=== PATIENT | male | born 1950 ===

== ENCOUNTER 2016-12-11 13:06 | Outpatient (CLI) | payer OTHER ==
[2016-12-11] MEDS ORDERED: ALBUTEROL NEB 2.5 MG/3 ML INH ONE (13:41)
== END 2016-12-11 13:07 | disposition home or self-care (01) ==
DX: R06.00 Dyspnea, unspecified (principal)
CPT/HCPCS: 94060; J7613

== ENCOUNTER 2017-03-19 12:31 | Outpatient (CLI) | payer OTHER | END 2017-03-19 12:32 | disposition home or self-care (01) | DX: I34.0 Nonrheumatic mitral (valve) insufficiency (principal); R06.00 Dyspnea, unspecified; I45.6 Pre-excitation syndrome; I48.92 Unspecified atrial flutter ==

== ENCOUNTER 2018-03-23 10:45 | Outpatient (CLI) | payer MEDICARE ==
[2018-03-23 11:10] LABS: BASOPHILS # (AUTO) 0.1 10^3/uL (0.0-0.1); BASOPHILS % (AUTO) 0.8 %; EOSINOPHILS # (AUTO) 0.2 10^3/uL (0.0-0.7); EOSINOPHILS % (AUTO) 2.8 %; HGB - HEMOGLOBIN 15.1 g/dL (14.0-18.0); LYMPHOCYTES # (AUTO) 1.1 10^3/uL (1.5-3.5); LYMPHOCYTES % (AUTO) 13.6 %; MEAN CORPUSCULAR HEMOGLOBIN 30.6 pg (27.0-31.0); MEAN CORPUSCULAR HGB CONC 34.1 g/dL (32.0-36.0); MEAN CORPUSCULAR VOLUME 89.6 fL (80.0-94.0); MEAN PLATELET VOLUME 8.4 fL (7.4-11.4); MONOCYTES # (AUTO) 0.9 10^3/uL (0.0-1.0); MONOCYTES % (AUTO) 11.9 %; NEUTROPHILS # (AUTO) 5.6 10^3/uL (1.5-6.6); NEUTROPHILS % (AUTO) 70.9 %; PLT - PLATELET COUNT 165 10^3/uL (130-450); RED BLOOD COUNT 4.95 10^6/uL (4.70-6.10); RED CELL DISTRIBUTION WIDTH 14.1 % (12.0-15.0); WHITE BLOOD COUNT 7.9 x10^3/uL (4.8-10.8)
[2018-03-23 11:18] LABS: BILIRUBIN,URINE NEGATIVE (NEGATIVE); GLUCOSE, URINE (UA) NEGATIVE (NEGATIVE); KETONES,URINE (UA) NEGATIVE (NEGATIVE); LEUKOCYTE ESTERASE, URINE NEGATIVE (NEGATIVE); NITRITE,URINE NEGATIVE (NEGATIVE); OCCULT BLOOD,URINE SMALL (NEGATIVE); PROTEIN,URINE NEGATIVE (NEGATIVE); UROBILINOGEN,URINE 0.2 (NORMAL) E.U./dL (NORMAL)
[2018-03-23 11:26] LABS: CLARITY,URINE CLEAR (CLEAR)
[2018-03-23 11:29] LABS: HEMOGLOBIN A1C 0.76 g/dL; HEMOGLOBIN A1C % 6.2 % (4.6-6.2)
[2018-03-23 11:30] LABS: ALBUMIN 4.4 g/dL (3.2-5.5); ALBUMIN/GLOBULIN RATIO 1.4 (1.0-2.2); ALKALINE PHOSPHATASE 54 IU/L (42-121); ALT ALANINE AMINOTRANSFERASE 45 IU/L (10-60); AST ASPARTATE AMINOTRANSFERASE 28 IU/L (10-42); BILIRUBIN,TOTAL 0.4 mg/dL (0.2-1.0); BUN - BLOOD UREA NITROGEN 18 mg/dL (6-20); CALCIUM 9.5 mg/dL (8.5-10.3); CARBON DIOXIDE - CO2 26 mmol/L (21-32); CHLORIDE 104 mmol/L (101-111); CHOL/HDL RATIO 4.6 (<5.0); CHOLESTEROL 201 mg/dL; CREATININE 0.8 mg/dL (0.6-1.2); GFR - MDRD 96 (>89); GLUCOSE 120 mg/dL (70-100); HDL CHOLESTEROL 44 mg/dL; LDL CHOLESTEROL,CALCULATED 120 mg/dL; LDL/HDL RATIO 2.7 (<3.6); SODIUM 138 mmol/L (135-145); TOTAL PROTEIN 7.5 g/dL (6.7-8.2); VLDL CHOLESTEROL 37 mg/dL
[2018-03-23 11:48] LABS: BACTERIA,URINE Rare /HPF (None Seen); CRYSTALS,URINE 0-2 Calcium Oxalate /LPF; RBC,URINE 0-5 /HPF (0-5); SQUAMOUS EPITHELIAL CELL,UR RARE Squamous (<= Few)
[2018-03-23 11:49] LABS: CASTS, URINE 0-2 Hyaline Casts /LPF
== END 2018-03-23 10:46 | disposition home or self-care (01) ==
LOC: LAB 10:45
PROVIDERS: ATTEND Internal Medicine
DX: Z79.899 Other long term (current) drug therapy (principal); I10 Essential (primary) hypertension; R06.00 Dyspnea, unspecified; I48.92 Unspecified atrial flutter; I45.6 Pre-excitation syndrome; E78.5 Hyperlipidemia, unspecified; R73.01 Impaired fasting glucose
CPT/HCPCS: 36415; 80053; 80061; 81001; 81003; 83036; 83721; 84443; 85025; 87086

== ENCOUNTER 2018-03-24 09:46 | Outpatient (CLI) | payer MEDICARE ==
--- NOTE | 2018-03-24 14:28 | XRAY Report ---
TWO VIEW CHEST: 03/24/2018 CLINICAL INDICATION: Dyspnea. FINDINGS: Frontal and lateral views of the chest demonstrate a normal cardiac silhouette. The lungs are hyperinflated, compatible with COPD, with mild fibrotic changes. Calcified granuloma is noted in the left upper lobe. No focal infiltrate, effusion, or pneumothorax is present. IMPRESSION: CHRONIC OBSTRUCTIVE PULMONARY DISEASE AND MILD FIBROSIS. TD: 03/24/2018 14:27
== END 2018-03-24 09:47 | disposition home or self-care (01) ==
LOC: DI 09:46
PROVIDERS: ATTEND Internal Medicine
DX: J44.9 Chronic obstructive pulmonary disease, unspecified (principal); J84.10 Pulmonary fibrosis, unspecified
CPT/HCPCS: 71046

== ENCOUNTER 2019-03-21 10:22 | Emergency (ER) | payer MEDICARE ==
[2019-03-21] MEDS ORDERED: IPRATROPIUM/ALBUTEROL 3 ML NEB INH STA (11:24)
[2019-03-21] MEDS ORDERED: predniSONE 20 MG TABLET PO STA (11:24)
--- NOTE | 2019-03-21 11:32 | ED Physician Documentation ---
History of Present Illness - Stated complaint Stated Complaint: CONGESTION/COUGH - Chief complaint Chief Complaint: Resp - History obtained from History obtained from: Patient, Family - History of Present Illness Timing: How many days ago (5) Pain level max: 3 Pain level now: 3 Improved by: rest Worsened by: exertion - Additonal information Additional information: 68-year-old male presents to the emergency department with cough and congestion for the past several days. Worsening dyspnea at home. Does have a history of asthma/COPD. States his rescue inhaler is not helping. Review of Systems Ears: denies: Ear pain GI: denies: Vomiting Skin: denies: Rash PD PAST MEDICAL HISTORY - Past Medical History Past Medical History: Yes Respiratory: Asthma, COPD - Past Surgical History Past Surgical History: No - Present Medications Home Medications: Ambulatory Orders Medication Instructions Recorded Confirmed Albuterol Sulf [Ventolin Hfa 1 - 2 puffs INH Q4HR PRN #1 inhaler 03/21/19 Inhaler] Doxycycline Hyclate 100 mg PO BID #20 capsule 03/21/19 predniSONE [Deltasone] 10 mg PO [id number] #42 tab 03/21/19 - Allergies Allergies/Adverse Reactions: Allergies Allergy/AdvReac Type Severity Reaction Status Date / Time No Known Drug Allergies Allergy Verified 03/21/19 10:32 - Living Situation Living Situation: reports: With family Living Arrangement: reports: At home - Social History Smoking Status: Former smoker Does the pt drink ETOH?: No Does the pt have substance abuse?: No - Family History Family history: reports: Non contributory PD ED PE NORMAL - Vitals Vital signs reviewed: Yes - General General: Alert and oriented X 3, No acute distress, Well developed/nourished - HEENT HEENT: PERRL, Ears normal, Moist mucous membranes, Pharynx benign - Neck Neck: Supple, no meningeal sign - Cardiac Cardiac: RRR - Respiratory Respiratory: No respiratory distress, Other (Diminished breath sounds and wheezing bilaterally) - Abdomen Abdomen: Soft, Non tender, Non distended - Derm Derm: Warm and dry - Extremities Extremities: No edema - Neuro Neuro: Alert and oriented X 3 - Psych Psych: Normal mood, Normal affect Results - Vitals Vitals: Vital Signs - 24 hr 03/21/19 03/21/19 03/21/19 10:30 11:50 13:10 Temperature 37.1 C Heart Rate 107 H 106 H 118 H Respiratory 22 20 18 Rate Blood Pressure 108/74 O2 Saturation 92 03/21/19 13:52 Temperature Heart Rate 107 H Respiratory 18 Rate Blood Pressure 110/75 O2 Saturation 99 Oxygen O2 Source Room air - Rads (name of study) Chest x-ray Radiology: Prelim report reviewed, EMP read contemporaneously, See rad report (Hyperexpansion as before suggesting COPD. Subtle reticulonodular opacities in the right perihilar region, could represent nodular infiltrate or artifact of endon vascular structures. No focal consolidation or pleural effusion) PD MEDICAL DECISION MAKING - ED course Complexity details: reviewed results, re-evaluated patient, considered differential, d/w patient, d/w family ED course: 68-year-old male presents to the emergency department with COPD flare and possible atypical pneumonia. Will place on doxycycline. Feels better after steroids and breathing treatments. Patient is well-appearing, nontoxic. Afebrile. No hypoxia. Patient counseled regarding signs and symptoms for which I believe and urgent re-evaluation would be necessary. Patient with good understanding of and agreement to plan and is comfortable going home at this time This document was made in part using voice recognition software. While efforts are made to proofread this document, sound alike and grammatical errors may occur. Departure - Departure Disposition: 01 Home, Self Care Clinical Impression: COPD (chronic obstructive pulmonary disease) Qualifiers: COPD type: unspecified COPD Qualified Code(s): J44.9 - Chronic obstructive pulmonary disease, unspecified Condition: Good Instructions: ED COPD Flare Follow-Up: Patti Vann MD [Primary Care Provider] - Within 1 week Prescriptions: Albuterol Sulf [Ventolin Hfa Inhaler] 1 - 2 puffs INH Q4HR PRN #1 inhaler PRN Reason: Shortness Of Air/Wheezing Doxycycline Hyclate 100 mg PO BID #20 capsule predniSONE [Deltasone] 10 mg PO [id number] #42 tab Comments: Use the medications as prescribed. Return if you worsen. Take all antibiotics until gone. Discharge Date/Time: 03/21/19 13:52
[2019-03-21] MEDS ORDERED: ALBUTEROL NEB 2.5 MG/3 ML INH STA (12:23)
--- NOTE | 2019-03-21 12:24 | XRAY Report ---
Reason: cough Procedure Date: 03/21/2019 Accession Number: [id number] / [id number] Procedure: XR - Chest 2 View X-Ray CPT Code: 09637 FULL RESULT: EXAM: CHEST RADIOGRAPHY EXAM DATE: 03/21/2019 12:02 PM. CLINICAL HISTORY: Cough. Shortness of breath, lightheadedness, and severe congestion x5 days. COMPARISON: CHEST 2 VIEW 03/24/2018 9:54 AM. TECHNIQUE: 2 views. FINDINGS: Lungs/Pleura: Hyperexpansion with flattening of the diaphragms, as before. Subtle reticulonodular opacities in the right perihilar region. Stable 8 mm calcified granuloma in the left upper lobe. No pleural effusion or pneumothorax. Mediastinum: Normal cardiomediastinal contour. Atherosclerotic calcifications within the aortic arch. Other: Mild degenerative changes in the mid/lower thoracic spine. IMPRESSION: 1. Hyperexpansion, as before, suggesting COPD. 2. Subtle reticulonodular opacities in the right perihilar region, which could represent nodular infiltrate or artifact of end-on vascular structures. 3. No focal consolidation or pleural effusion. RADIA
[2019-03-21 13:53] VITALS: BP 110/75
== END 2019-03-21 13:52 | disposition home or self-care (01) ==
LOC: ED 10:22
DX: J44.1 Chronic obstructive pulmonary disease with (acute) exacerbation (principal); Z87.891 Personal history of nicotine dependence
CPT/HCPCS: 71046; 94640; 99282; 99284; J7512

== ENCOUNTER 2021-08-19 14:06 | Outpatient (CLI) | payer MEDICARE | END 2021-08-19 14:07 | disposition home or self-care (01) | LOC: COV 14:06 | PROVIDERS: ATTEND Internal Medicine Cardiovascular Disease | DX: Z01.812 Encounter for preprocedural laboratory examination (principal); Z20.822 Contact with and (suspected) exposure to COVID-19 ==

== ENCOUNTER 2022-10-15 15:56 | Emergency (ER) | payer MEDICARE ==
[2022-10-15 17:13] LABS: BASOPHILS % (AUTO) 0.3 %; EOSINOPHILS % (AUTO) 0.2 %; HCT - HEMATOCRIT 42.6 % (42.0-52.0); HGB - HEMOGLOBIN 13.6 g/dL (14.0-18.0); LYMPHOCYTES % (AUTO) 1.8 %; MEAN CORPUSCULAR HEMOGLOBIN 27.5 pg (27.0-31.0); MEAN CORPUSCULAR HGB CONC 31.9 g/dL (32.0-36.0); MEAN CORPUSCULAR VOLUME 86.2 fL (80.0-94.0); MEAN PLATELET VOLUME 10.6 fL (7.4-11.4); MONOCYTES % (AUTO) 4.9 %; NEUTROPHILS % (AUTO) 90.1 %; PLT - PLATELET COUNT 199 10^3/uL (130-450); RED BLOOD COUNT 4.94 10^6/uL (4.70-6.10); RED CELL DISTRIBUTION WIDTH 17.4 % (12.0-15.0); WHITE BLOOD COUNT 27.1 x10^3/uL (4.8-10.8)
[2022-10-15 17:19] LABS: ABNORMAL LYMPHS % (MANUAL) 0 %
[2022-10-15 17:20] LABS: CALCIUM 8.8 mg/dL (8.5-10.3); POTASSIUM 5.5 mmol/L (3.5-5.0)
[2022-10-15] MEDS ORDERED: IPRATROPIUM/ALBUTEROL 3 ML NEB INH STA (17:32)
--- NOTE | 2022-10-15 17:32 | ED Physician Documentation ---
PD HPI DYSPNEA - Stated complaint Stated Complaint: SOA/FATIGUE - Chief complaint Chief Complaint: Resp - History obtained from History obtained from: Patient - Additional information Additional information: 72-year-old gentleman with history of COPD, coronary disease status post stenting had a cough and shortness of breath last week. He was seen in the clinic and diagnosed with pneumonia and started on Zithromax. He became more short of breath with orthopnea today. He denies pedal edema or chest pain. Review of Systems Ten Systems: 10 systems reviewed and negative Constitutional: denies: Fever, Chills Cardiac: denies: Chest pain / pressure, Palpitations Respiratory: reports: Dyspnea, Cough PD PAST MEDICAL HISTORY - Past Medical History Respiratory: Asthma, COPD - Past Surgical History Past Surgical History: No - Present Medications Home Medications: Ambulatory Orders Medication Instructions Recorded Confirmed Albuterol Sulf [Ventolin Hfa 1 - 2 puffs INH Q4HR PRN #1 inhaler 03/21/19 Inhaler] Doxycycline Hyclate 100 mg PO BID #20 capsule 03/21/19 predniSONE [Deltasone] 10 mg PO [id number] #42 tab 03/21/19 Amox/Clav 875/125 [Augmentin] 1 each PO Q12H #20 tablet 10/15/22 Doxycycline Hyclate 100 mg PO BID #20 cap 10/15/22 Ipratropium/Albuterol [Duoneb] 3 ml INH Q6H PRN #1 ea 10/15/22 - Allergies Allergies/Adverse Reactions: Allergies Allergy/AdvReac Type Severity Reaction Status Date / Time No Known Drug Allergies Allergy Verified 10/15/22 16:05 - Social History Smoking Status: Former smoker Does the pt drink ETOH?: No Does the pt have substance abuse?: No PD ED PE NORMAL - Vitals Vital signs reviewed: Yes - General General: Alert and oriented X 3, Other (Appears slightly breathless, but speaking in full sentences) - Neck Neck: Supple, no meningeal sign, No bony TTP - Cardiac Cardiac: RRR, No murmur - Respiratory Respiratory: No respiratory distress, Other (Diminished and wheezy throughout with mild bibasilar rhonchi) - Abdomen Abdomen: Non tender - Extremities Extremities: No edema, No calf tenderness / cord - Neuro Neuro: Alert and oriented X 3, Normal speech Results - Vitals Vitals: Vital Signs - 24 hr 10/15/22 10/15/22 10/15/22 16:05 16:09 17:50 Temperature 36.8 C Heart Rate 85 79 78 Respiratory 18 24 22 Rate Blood Pressure 128/72 152/92 H O2 Saturation 96 93 10/15/22 18:09 Temperature Heart Rate 72 Respiratory 24 Rate Blood Pressure 147/88 H O2 Saturation 100 Oxygen O2 Source Room air - Labs Labs: Laboratory Tests 10/15/22 10/15/22 10/15/22 17:03 17:03 17:48 WBC 27.1 H RBC 4.94 Hgb 13.6 L Hct 42.6 MCV 86.2 MCH 27.5 MCHC 31.9 L RDW 17.4 H Plt Count 199 MPV 10.6 Neut # (Auto) Not Reportable Lymph # (Auto) Not Reportable [place] # (Auto) Not Reportable Eos # (Auto) Not Reportable Baso # (Auto) Not Reportable Absolute Nucleated RBC Not Reportable Total Counted 100 Band Neuts % (Manual) 2 Abnorm Lymph % (Manual) 0 Nucleated RBC % Not Reportable Neutrophils # (Manual) 25.2 H Lymphocytes # (Manual) 0.8 L Monocytes # (Manual) 1.1 H Eosinophils # (Manual) 0.0 Basophils # (Manual) 0.0 Differential Comment MANUAL DIFFERENTIAL Platelet Estimate NORMAL (130-450,000) Platelet Morphology NORMAL APPEARANCE RBC Morph Micro Appear NORMAL APPEARANCE Sodium 133 L Potassium 5.5 H Chloride 97 L Carbon Dioxide 26 Anion Gap 10.0 BUN 24 H Creatinine 1.0 Estimated GFR (MDRD) 73 L Glucose 218 H Lactic Acid Calcium 8.8 B-Natriuretic Peptide 2854 H 10/15/22 17:48 WBC RBC Hgb Hct MCV MCH MCHC RDW Plt Count MPV Neut # (Auto) Lymph # (Auto) [place] # (Auto) Eos # (Auto) Baso # (Auto) Absolute Nucleated RBC Total Counted Band Neuts % (Manual) Abnorm Lymph % (Manual) Nucleated RBC % Neutrophils # (Manual) Lymphocytes # (Manual) Monocytes # (Manual) Eosinophils # (Manual) Basophils # (Manual) Differential Comment Platelet Estimate Platelet Morphology RBC Morph Micro Appear Sodium Potassium Chloride Carbon Dioxide Anion Gap BUN Creatinine Estimated GFR (MDRD) Glucose Lactic Acid 3.2 H* Calcium B-Natriuretic Peptide - Rads (name of study) New left lower lobe pneumonia on 2 view chest x-ray Radiology: EMP read contemporaneously PD MEDICAL DECISION MAKING - ED course ED course: 72-year-old gentleman with history of COPD and coronary disease presents with persistent signs and symptoms of pneumonia despite azithromycin only treatment for same. He was feeling better after a DuoNeb. I reviewed his paperwork from his doctor's office, his vital signs are actually better today than they were in the office, at that time his respiratory rate was 46 and his heart rate was 100 His chest x-ray shows persistent left lower lobe pneumonia, given current IDSA guidelines I will broaden his coverage with a dose of Unasyn and Augmentin/Doxy for home. He did feel well enough to go home. I am ordering a home nebulizer machine to administer bronchodilators for COPD Of note his BNP is positive but clinically not fluid overloaded, actually looking more hypovolemic. Departure - Departure Disposition: 01 Home, Self Care Clinical Impression: Pneumonia Qualifiers: Pneumonia type: due to unspecified organism Laterality: left Lung location: lower lobe of lung Qualified Code(s): J18.9 - Pneumonia, unspecified organism COPD (chronic obstructive pulmonary disease) Qualifiers: COPD type: COPD with acute exacerbation Qualified Code(s): J44.1 - Chronic obstructive pulmonary disease with (acute) exacerbation Condition: Good Record reviewed to determine appropriate education?: Yes Instructions: Pneumonia Dc Prescriptions: Amox/Clav 875/125 [Augmentin] 1 each PO Q12H #20 tablet Doxycycline Hyclate 100 mg PO BID #20 cap Ipratropium/Albuterol [Duoneb] 3 ml INH Q6H PRN #1 ea PRN Reason: Dyspnea Comments: Your x-ray shows persistent pneumonia, I am broadening your antibiotics and we also are getting you a nebulizer machine. Return for new or worsening symptoms. Regardless of improvement you do need to follow-up with your doctor and they will likely want to repeat a chest x-ray in 4 to 6 weeks to document resolution of the pneumonia. Of note your BNP was positive today, this is suggestive of heart failure, that said I suspect it is more of a chronic condition than acute given the lack of fluid overload on your chest x-ray and your labs actually show more of a dehydration type picture for which she received a small amount of IV fluids. I sent your prescription electronically to [facility] in [place].
[2022-10-15 17:47] LABS: BAND NEUTROPHILS % (MANUAL) 2 %; DIFFERENTIAL COMMENT MANUAL DIFFERENTIAL; LYMPHOCYTES # (MANUAL) 0.8 10^3/uL (1.5-3.5); LYMPHOCYTES % (MANUAL) 3 %; MONOCYTES # (MANUAL) 1.1 10^3/uL (0.0-1.0); NEUTROPHILS # (MANUAL) 25.2 10^3/uL (1.5-6.6); PLATELET ESTIMATE, MANUAL NORMAL (130-450,000) (NORMAL); PLATELET MORPHOLOGY NORMAL APPEARANCE (NORMAL); RBC MORPHOLOGY (MULTIPLE) NORMAL APPEARANCE (NORMAL)
--- NOTE | 2022-10-15 18:05 | XRAY Report ---
PROCEDURE: Chest 2 View X-Ray INDICATIONS: cough TECHNIQUE: 2 views of the chest were acquired. COMPARISON: 03/21/2019 FINDINGS: Surgical changes and devices: Multiple median sternotomy wires. Left cardiac pacer device is in place .. Lungs and pleura: No pneumothorax. Right lung appears clear. Patchy airspace opacity of the left mid lung zone with small left pleural effusion. Stable nodular de nsity of the left upper lung zone. Mediastinum: Mediastinal contours are normal. Heart size is normal. Bones and chest wall: No suspicious bony abnormalities. Soft tissues appear unremarkable. IMPRESSION: New left lower lung zone airspace disease/pneumonia. Small left pleural effusion. Recommend follow-up chest radiograph 4-6 weeks after treatment to document resolution of findings and /or return to baseline exam. Reviewed by: Ney Cuadra MD on 10/15/2022 6:04 PM PST Approved by: Ney Cuadra MD on 10/15/2022 6:[address] [facility] Station ID: [id number]
[2022-10-15] MEDS ORDERED: AMPICILLIN/SULBACTAM 3 GM in SODIUM CHLORIDE 0.9% MINIBAG 100 ML IV STA (18:12)
[2022-10-15] MEDS ORDERED: SODIUM CHLORIDE 0.9% 1,000 ML IV STA (18:12)
[2022-10-15] MEDS ORDERED: DOXYCYCLINE 100 MG TABLET PO STA (18:12)
[2022-10-15] MEDS ORDERED: SODIUM CHLORIDE 0.9% 500 ML IV STA (18:47)
[2022-10-15 19:40] VITALS: BP 138/62
== END 2022-10-15 19:39 | disposition home or self-care (01) ==
LOC: ED 15:56
DX: J44.0 Chronic obstructive pulmonary disease with (acute) lower respiratory infection (principal); J18.9 Pneumonia, unspecified organism; J44.1 Chronic obstructive pulmonary disease with (acute) exacerbation; E86.0 Dehydration; I25.10 Atherosclerotic heart disease of native coronary artery without angina pectoris; Z95.5 Presence of coronary angioplasty implant and graft; Z87.891 Personal history of nicotine dependence
CPT/HCPCS: 36415; 71046; 80048; 83605; 83880; 85025; 87040; 87150; 87181; 94640; 94664; 96365; 99283; 99284; A9270

== ENCOUNTER 2022-10-20 16:29 | Emergency (ER) | payer MEDICARE ==
[2022-10-20 17:18] LABS: BASOPHILS % (AUTO) 0.1 %; EOSINOPHILS % (AUTO) 0.1 %; HGB - HEMOGLOBIN 13.1 g/dL (14.0-18.0); LYMPHOCYTES # (AUTO) 0.6 10^3/uL (1.5-3.5); LYMPHOCYTES % (AUTO) 3.2 %; MEAN CORPUSCULAR HEMOGLOBIN 27.2 pg (27.0-31.0); MEAN CORPUSCULAR VOLUME 85.2 fL (80.0-94.0); MEAN PLATELET VOLUME 10.7 fL (7.4-11.4); MONOCYTES # (AUTO) 1.1 10^3/uL (0.0-1.0); MONOCYTES % (AUTO) 5.7 %; NEUTROPHILS # (AUTO) 17.7 10^3/uL (1.5-6.6); NEUTROPHILS % (AUTO) 90.3 %; PLT - PLATELET COUNT 242 10^3/uL (130-450); RED BLOOD COUNT 4.81 10^6/uL (4.70-6.10); RED CELL DISTRIBUTION WIDTH 17.3 % (12.0-15.0); WHITE BLOOD COUNT 19.6 x10^3/uL (4.8-10.8)
[2022-10-20 17:34] LABS: ALBUMIN 3.3 g/dL (3.2-5.5); CALCIUM 8.7 mg/dL (8.5-10.3); CREATININE 0.9 mg/dL (0.6-1.2); TOTAL PROTEIN 6.5 g/dL (6.7-8.2)
--- NOTE | 2022-10-20 20:13 | ED Physician Documentation ---
History of Present Illness - Stated complaint Stated Complaint: POSITIVE CULTURE - Chief complaint Chief Complaint: General - History obtained from History obtained from: Patient - History of Present Illness Timing: How many weeks ago (2) Pain level max: 0 Pain level now: 0 - Additonal information Additional information: patient presents tonight due to positive blood cultures on previous ED visit. He was called with results and advised to come to ED for reevaluation. He was T+R from this ED 10/15/17 c/o dyspnea, cough. ED MD note indicates patient was already prescribed zithromax and because symptoms did not improve with this antibiotic, he was changed to augmentin and doxycycline. His WBC was 27.1 on that visit. He returned the following day (10/16) due to positive blood cultures (pelayo-sensitive staph aureus); He had elevated procalcitonin, serum lactate but WBC decreased to 14.1. He was given a dose of IV vancomycin and again discharged, advised to continue the augmentin and doxycycline. He returns tonight due to receiving a call regarding the blood culture drawn 10/16 which was again positive. He says he is feeling improved since he was last here, with decreased dyspnea and cough. He denies fevers. Review of Systems Constitutional: denies: Fever, Chills, Sweats Cardiac: reports: Reviewed and negative Respiratory: reports: Dyspnea, Cough GI: reports: Reviewed and negative PD PAST MEDICAL HISTORY - Past Medical History Past Medical History: Yes Cardiovascular: Hypertension Respiratory: Asthma, COPD - Past Surgical History Past Surgical History: No - Present Medications Home Medications: Ambulatory Orders Medication Instructions Recorded Confirmed Albuterol Sulf [Ventolin Hfa 1 - 2 puffs INH Q4HR PRN #1 inhaler 03/21/19 Inhaler] Doxycycline Hyclate 100 mg PO BID #20 capsule 03/21/19 predniSONE [Deltasone] 10 mg PO [id number] #42 tab 03/21/19 Amox/Clav 875/125 [Augmentin] 1 each PO Q12H #20 tablet 10/15/22 Doxycycline Hyclate 100 mg PO BID #20 cap 10/15/22 Ipratropium/Albuterol [Duoneb] 3 ml INH Q6H PRN #1 ea 10/15/22 Cefuroxime Axetil [Cefuroxime] 500 mg PO 10/20/22 Clopidogrel [Plavix] 75 mg PO DAILY 10/20/22 10/20/22 Dabigatran Etexilate Mesylate 10/20/22 [Pradaxa] Furosemide [Lasix] 40 mg PO DAILY 10/20/22 10/20/22 Isosorbide Mononitrate ER [Imdur] 30 mg PO DAILY 10/20/22 10/20/22 Metoprolol Succinate [Toprol Xl] 50 mg PO DAILY 10/20/22 10/20/22 Tiotropium Br/Olodaterol HCl 10/20/22 10/20/22 [Stiolto Respimat Inhal [place]] - Allergies Allergies/Adverse Reactions: Allergies Allergy/AdvReac Type Severity Reaction Status Date / Time No Known Drug Allergies Allergy Verified 10/20/22 16:50 - Social History Does the pt smoke?: No Smoking Status: Never smoker Does the pt drink ETOH?: No Does the pt have substance abuse?: No PD ED PE NORMAL - Vitals Vital signs reviewed: Yes - General General: Alert and oriented X 3, No acute distress, Well developed/nourished - Cardiac Cardiac: RRR, No murmur - Respiratory Respiratory: No respiratory distress, Clear bilaterally - Abdomen Abdomen: Soft, Non tender - Derm Derm: Normal color, Warm and dry Results - Vitals Vitals: Oxygen O2 Source Room air - Labs Labs: Microbiology 10/20/22 17:10 Blood Culture - Preliminary Blood - Left Arm NO GROWTH AFTER 2 DAYS 10/20/22 17:06 Blood Culture - Preliminary Blood - Right Arm NO GROWTH AFTER 2 DAYS Laboratory Tests 10/20/22 10/20/22 10/20/22 17:06 17:06 17:10 WBC 19.6 H RBC 4.81 Hgb 13.1 L Hct 41.0 L MCV 85.2 MCH 27.2 MCHC 32.0 RDW 17.3 H Plt Count 242 MPV 10.7 Neut # (Auto) 17.7 H Lymph # (Auto) 0.6 L [place] # (Auto) 1.1 H Eos # (Auto) 0.0 Baso # (Auto) 0.0 Absolute Nucleated RBC 0.00 Nucleated RBC % 0.0 Sodium 134 L Potassium 4.0 Chloride 96 L Carbon Dioxide 29 Anion Gap 9.0 BUN 27 H Creatinine 0.9 Estimated GFR (MDRD) 83 L Glucose 187 H Lactic Acid 1.5 Calcium 8.7 Total Bilirubin 1.0 AST 24 ALT 59 Alkaline Phosphatase 79 Total Protein 6.5 L Albumin 3.3 Globulin 3.2 Albumin/Globulin Ratio 1.0 Lipase 27 - Rads (name of study) chest xray Radiology: Prelim report reviewed, See rad report PD MEDICAL DECISION MAKING - ED course Complexity details: reviewed old records, reviewed results, re-evaluated patient, considered differential, d/w patient ED course: presents with improving dyspnea and cough which have been ongoing for nearly 2 weeks. He returns to ED due to positive blood culture on previous visit. Tonight's testing shows no significant change in CXR, increased WBC (19.6, with previous 14.1 on 10/16, 27.1 10/15). His lactate level is normal tonight and he says he feels well and would like to be discharged at this time. He is advised to continue the antibiotics, return precautions reviewed. A new set of blood cultures is pending (drawn on tonight's visit). Departure - Departure Disposition: 01 Home, Self Care Clinical Impression: Staphylococcus aureus bacteremia Condition: Good Instructions: ED Bacteremia Rule Out Comments: Continue the antibiotics as previously prescribed. Tonight's test results are reassuring, although, as we discussed, your white blood cell count increased from your previous visit (but not as high as your first visit on 10/15/22). Discharge Date/Time: 10/20/22 20:44
--- NOTE | 2022-10-20 20:20 | XRAY Report ---
PROCEDURE: Chest 1 View X-Ray INDICATIONS: cough TECHNIQUE: One view of the chest was acquired. COMPARISON: Chest x-ray 10/16/2022, 03/21/2019. FINDINGS: Surgical changes and devices: Left chest wall pacemaker and leads appear similar in position. Post s urgical changes redemonstrated in the mediastinum. Lungs and pleura: There is a persistent small left pleural effusion with confluent left basilar opac ities suggestive of consolidation and pneumonia. There is persistent pulmonary edema which appears si milar to the prior study. No pneumothorax. Mediastinum: Mediastinal contours appear unchanged. Heart size is normal. Bones and chest wall: No suspicious bony lesions. Overlying soft tissues appear unremarkable. IMPRESSION: 1. Persistent small left pleural effusion with confluent left basilar opacities suggestive of consoli dation and pneumonia. There is also likely a component of compressive atelectasis. 2. Persistent pulmonary edema appears similar to the prior study. Reviewed by: Rey Freeman MD on 10/20/2022 8:19 PM PST Approved by: Rey Freeman MD on 10/20/2022 8:19 PM PST Station ID: [id number]
[2022-10-20 20:42] VITALS: BP 161/80
== END 2022-10-20 20:44 | disposition home or self-care (01) ==
LOC: ED 16:29
DX: A49.01 Methicillin susceptible Staphylococcus aureus infection, unspecified site (principal)
CPT/HCPCS: 36415; 80053; 83605; 83690; 85025; 87040; 99283; 99284

== ENCOUNTER 2022-10-31 20:19 | Emergency (ER) | payer MEDICARE ==
--- NOTE | 2022-10-31 21:17 | ED Physician Documentation ---
PD HPI DYSPNEA - Stated complaint Stated Complaint: VERY SOA - Chief complaint Chief Complaint: Resp - History obtained from History obtained from: Patient, Family (spouse (in ED at bedside)) - History of Present Illness Timing - onset: Today Timing - details: Gradual onset Pain level max: 0 Pain level now: 0 Improved by: Rest Worsened by: Exertion Associated symptoms: Fever, Cough. No: Hemoptysis, Chest pain / discomfort, Bilateral edema, Unilateral edema Recently seen: Emergency Dept - Additional information Additional information: Patient was evaluated in this ED 10/15 for cough, fever. He had been evaluated in outpatient clinic and prescribed zithromax but came to ED 10/15 for worsening symptoms. He was given IV unasyn and prescribed augmentin, doxycycline, and nebulizer with duoneb bullets. He returned 10/16 due to positive blood cultures that were drawn 10/15 (2 or 2 positive for staph aureus). His abnormal blood tests trended in improving direction and patient was reporting feeling better and he was again discharged. He returned 10/20, again due to positive blood cultures (from 10/16). On that visit, he said he was continuing to improve, felt well with only mild dyspnea and occasional cough. WBC was 19.6, up from 14 from previous but WBC was 27 on 10/15. No changes on CXR from the two previous studies. He was again discharged. The blood cultures drawn on the 10/20 visit were negative for culture growth. He says he felt the symptoms had resolved until earlier this afternoon, when he developed fever, myalgias, headache, and chief complaint of shortness of breath. Denies chest pain/pressure/tightness. He has COPD but does not use oxygen at home. He completed the prescribed antibiotics approximately 5 days ago but is still at the tail-end of a prednisone taper. Review of Systems Constitutional: reports: Fever, Chills, Myalgias, Fatigue, Sweats Cardiac: denies: Chest pain / pressure, Palpitations Respiratory: reports: Dyspnea, Cough. denies: Hemoptysis, Wheezing GI: reports: Nausea. denies: Abdominal Pain, Vomiting : denies: Dysuria, Frequency Skin: reports: Reviewed and negative Musculoskeletal: reports: Reviewed and negative Neurologic: reports: Generalized weakness, Headache. denies: Focal weakness, Numbness PD PAST MEDICAL HISTORY - Past Medical History Cardiovascular: Hypertension Respiratory: Asthma, COPD - Past Surgical History Past Surgical History: No - Present Medications Home Medications: Ambulatory Orders Medication Instructions Recorded Confirmed Albuterol Sulf [Ventolin Hfa 1 - 2 puffs INH Q4HR PRN #1 inhaler 03/21/19 Inhaler] Doxycycline Hyclate 100 mg PO BID #20 capsule 03/21/19 predniSONE [Deltasone] 10 mg PO [id number] #[id number] tab 03/21/19 Amox/Clav 875/125 [Augmentin] 1 each PO Q12H #20 tablet 10/15/22 Doxycycline Hyclate 100 mg PO BID #20 cap 10/15/22 Ipratropium/Albuterol [Duoneb] 3 ml INH Q6H PRN #1 ea 10/15/22 Cefuroxime Axetil [Cefuroxime] 500 mg PO 10/20/22 Clopidogrel [Plavix] 75 mg PO DAILY 10/20/22 10/20/22 Dabigatran Etexilate Mesylate 10/20/22 [Pradaxa] Furosemide [Lasix] 40 mg PO DAILY 10/20/22 10/20/22 Isosorbide Mononitrate ER [Imdur] 30 mg PO DAILY 10/20/22 10/20/22 Metoprolol Succinate [Toprol Xl] 50 mg PO DAILY 10/20/22 10/20/22 Tiotropium Br/Olodaterol HCl 10/20/22 10/20/22 [Stiolto Respimat Inhal [place]] Amox/Clav 875/125 [Augmentin 1 tablet PO Q12H 10 Days #20 tablet 10/31/22 875/125 Tab] Doxycycline [Vibramycin] 100 mg PO BID #20 tablet 10/31/22 - Allergies Allergies/Adverse Reactions: Allergies Allergy/AdvReac Type Severity Reaction Status Date / Time No Known Drug Allergies Allergy Verified 10/31/22 20:57 - Social History Does the pt smoke?: No Smoking Status: Never smoker Does the pt drink ETOH?: No Does the pt have substance abuse?: No PD ED PE NORMAL - Vitals Vital signs reviewed: Yes - General General: Alert and oriented X 3, Well developed/nourished, Other (appears anxious, tachypneic. able to speak in full sentences) - HEENT HEENT: Moist mucous membranes - Neck Neck: Supple, no meningeal sign, No JVD - Respiratory Respiratory: No respiratory distress, Clear bilaterally - Abdomen Abdomen: Soft, Non tender, Non distended - Back Back: No CVA TTP - Derm Derm: Normal color, Warm and dry - Extremities Extremities: No edema - Neuro Neuro: Alert and oriented X 3 PD ED PE EXPANDED - Cardiac Cardiac: Tachy, Regular Rhythm Results - Vitals Vitals: Oxygen O2 Source Room air - EKG (time done) No standard instances Rate: Rate (enter#) (109) Rhythm: Paced (ventricular paced) - Labs Labs: Microbiology 10/31/22 21:52 Blood Culture - Preliminary Blood - Right Iv-Start 10/31/22 21:51 Blood Culture (PCR) - Final Blood - Left Arm 10/31/22 21:51 Blood Culture - Preliminary Blood - Left Arm Laboratory Tests 10/31/22 10/31/22 10/31/22 21:25 21:51 21:51 WBC 10.8 RBC 4.64 L Hgb 12.8 L Hct 38.9 L MCV 83.8 MCH 27.6 MCHC 32.9 RDW 18.4 H Plt Count 117 L MPV 9.8 Neut # (Auto) 9.6 H Lymph # (Auto) 0.3 L [place] # (Auto) 0.7 Eos # (Auto) 0.0 Baso # (Auto) 0.1 Absolute Nucleated RBC 0.00 Nucleated RBC % 0.0 Sodium 130 L Potassium 4.1 Chloride 97 L Carbon Dioxide 21 Anion Gap 12.0 BUN 21 H Creatinine 0.8 Estimated GFR (MDRD) 95 Glucose 178 H Lactic Acid Calcium 8.7 Total Bilirubin 1.3 H AST 58 H ALT 77 H Alkaline Phosphatase 98 B-Natriuretic Peptide Total Protein 6.8 Albumin 3.5 Globulin 3.3 Albumin/Globulin Ratio 1.1 Lipase 23 Urine Color Urine Clarity Urine pH Ur Specific Coral Urine Protein Urine Glucose (UA) Urine Ketones Urine Occult Blood Urine Nitrite Urine Bilirubin Urine Urobilinogen Ur Leukocyte Esterase Urine RBC Urine WBC Ur Squamous Epith Cells Urine Bacteria Ur Microscopic Review Urine Culture Comments Nasal Adenovirus (PCR) NOT DETECTED Nasal B. parapertussis DNA (PCR) NOT DETECTED Nasal Coronavir 229E PCR NOT DETECTED Nasal Coronavir HKU1 PCR NOT DETECTED Nasal Coronavir NL63 PCR NOT DETECTED Nasal Coronavir OC43 PCR NOT DETECTED Nasal Enterovir/Rhinovir PCR NOT DETECTED Nasal Influenza B PCR NOT DETECTED Nasal Influenza A PCR NOT DETECTED Nasal Parainfluen 1 PCR NOT DETECTED Nasal Parainfluen 2 PCR NOT DETECTED Nasal Parainfluen 3 PCR NOT DETECTED Nasal Parainfluen 4 PCR NOT DETECTED Nasal RSV (PCR) NOT DETECTED Nasal B.pertussis DNA PCR NOT DETECTED Nasal C.pneumoniae (PCR) NOT DETECTED Tanner Human Metapneumo PCR NOT DETECTED Nasal M.pneumoniae (PCR) NOT DETECTED Nasal SARS-CoV-2 (PCR) NOT DETECTED 10/31/22 10/31/22 10/31/22 21:51 21:51 22:18 WBC RBC Hgb Hct MCV MCH MCHC RDW Plt Count MPV Neut # (Auto) Lymph # (Auto) Rincon # (Auto) Eos # (Auto) Baso # (Auto) Absolute Nucleated RBC Nucleated RBC % Sodium Potassium Chloride Carbon Dioxide Anion Gap BUN Creatinine Estimated GFR (MDRD) Glucose Lactic Acid 1.8 Calcium Total Bilirubin AST ALT Alkaline Phosphatase B-Natriuretic Peptide 437 H Total Protein Albumin Globulin Albumin/Globulin Ratio Lipase Urine Color YELLOW Urine Clarity CLEAR Urine pH 6.0 Ur Specific Coral 1.025 Urine Protein NEGATIVE Urine Glucose (UA) NEGATIVE Urine Ketones NEGATIVE Urine Occult Blood MODERATE H Urine Nitrite NEGATIVE Urine Bilirubin NEGATIVE Urine Urobilinogen 0.2 (NORMAL) Ur Leukocyte Esterase NEGATIVE Urine RBC 11-25 H Urine WBC 0-3 Ur Squamous Epith Cells RARE Squamous Urine Bacteria Rare Ur Microscopic Review INDICATED Urine Culture Comments NOT INDICATED Nasal Adenovirus (PCR) Nasal B. parapertussis DNA (PCR) Nasal Coronavir 229E PCR Nasal Coronavir HKU1 PCR Nasal Coronavir NL63 PCR Nasal Coronavir OC43 PCR Nasal Enterovir/Rhinovir PCR Nasal Influenza B PCR Nasal Influenza A PCR Nasal Parainfluen 1 PCR Nasal Parainfluen 2 PCR Nasal Parainfluen 3 PCR Nasal Parainfluen 4 PCR Nasal RSV (PCR) Nasal B.pertussis DNA PCR Nasal C.pneumoniae (PCR) Tanner Human Metapneumo PCR Nasal M.pneumoniae (PCR) Nasal SARS-CoV-2 (PCR) - Rads (name of study) chest xray Radiology: Prelim report reviewed, See rad report PD MEDICAL DECISION MAKING - ED course Complexity details: reviewed old records, reviewed results, re-evaluated patient, considered differential, d/w patient ED course: presents with fever, dyspnea, tachycardia, generalized malaise and myalgias. Respiratory PCR panel is negative for viruses tested. Lactic acid level is normal as is white blood cell count. He has very mildly elevated bilirubin, AST, and ALT which is likely incidental finding (no abdominal c/o, nontender on exam). UA negative except for moderate RBC (noted on both macro and micro). CXR without significant change from previous (recent) CXR. No source for his fever is apparent at this time. Given similar presentation last week associated with staphylococcal (s. aureus) bacteremia, he is given IV vancomycin in ED and prescribed augmentin and doxycycline (this was the regimen he had been on that resulted in symptom resolution). Return precautions reviewed with patient and advised to follow up with primary care provider Thursday for reevaluation Departure - Departure Disposition: Home, Self Care Clinical Impression: Fever Qualifiers: Fever type: unspecified Qualified Code(s): R50.9 - Fever, unspecified Condition: Good Instructions: ED Atelectasis, ED Fever Unconf Cause Prescriptions: Amox/Clav 875/125 [Augmentin 875/125 Tab] 1 tablet PO Q12H 10 Days #20 tablet Doxycycline [Vibramycin] 100 mg PO BID #20 tablet Comments: As we discussed, the source of your fever is not apparent at this time. Based on your difficulty breathing and cough, despite no obvious pneumonia on the chest xray, and without other findings on exam/tests to suggest a source of infection, it is reasonable to treat you for a recurrence of your recent pneumonia (particularly considering your recent blood cultures showing you had bacteria in your blood stream). You were given a dose of vancomycin through the IV and prescriptions for two antibiotics have been electronically submitted to the [facility] pharmacy in [place]. Your blood tests were reassuring ,with normal white blood cell count and normal lactic acid level (lactic acid level tends to elevate in correlation with severity of infection). You had blood in the urine sample but no evidence of urinary tract infection. This is a coincident finding, but be sure to mention this to your primary care provider, as further tests might be needed to make sure there is not a concerning cause of this finding. The nasal swab was negative for the viruses tested including COVID, influenza, RSV. Discharge Date/Time: 11/01/22 02:09
[2022-10-31] MEDS ORDERED: ACETAMINOPHEN 325 MG TABLET PO STA (21:24)
[2022-10-31] MEDS ORDERED: ACETAMINOPHEN 325 MG TABLET PO ONE (21:24)
[2022-10-31] MEDS ORDERED: IPRATROPIUM/ALBUTEROL 3 ML NEB INH STA (21:41)
[2022-10-31 22:01] LABS: BASOPHILS # (AUTO) 0.1 10^3/uL (0.0-0.1); BASOPHILS % (AUTO) 0.5 %; EOSINOPHILS % (AUTO) 0.4 %; HCT - HEMATOCRIT 38.9 % (42.0-52.0); HGB - HEMOGLOBIN 12.8 g/dL (14.0-18.0); LYMPHOCYTES # (AUTO) 0.3 10^3/uL (1.5-3.5); LYMPHOCYTES % (AUTO) 3.1 %; MEAN CORPUSCULAR HEMOGLOBIN 27.6 pg (27.0-31.0); MEAN CORPUSCULAR HGB CONC 32.9 g/dL (32.0-36.0); MEAN CORPUSCULAR VOLUME 83.8 fL (80.0-94.0); MEAN PLATELET VOLUME 9.8 fL (7.4-11.4); MONOCYTES # (AUTO) 0.7 10^3/uL (0.0-1.0); NEUTROPHILS # (AUTO) 9.6 10^3/uL (1.5-6.6); NEUTROPHILS % (AUTO) 89.3 %; PLT - PLATELET COUNT 117 10^3/uL (130-450); RED BLOOD COUNT 4.64 10^6/uL (4.70-6.10); RED CELL DISTRIBUTION WIDTH 18.4 % (12.0-15.0); WHITE BLOOD COUNT 10.8 x10^3/uL (4.8-10.8)
[2022-10-31 22:12] LABS: ALBUMIN 3.5 g/dL (3.2-5.5); ALBUMIN/GLOBULIN RATIO 1.1 (1.0-2.2); BILIRUBIN,TOTAL 1.3 mg/dL (0.2-1.0); CALCIUM 8.7 mg/dL (8.5-10.3); CREATININE 0.8 mg/dL (0.6-1.2); POTASSIUM 4.1 mmol/L (3.5-5.0); TOTAL PROTEIN 6.8 g/dL (6.7-8.2)
[2022-10-31 22:35] LABS: BILIRUBIN,URINE NEGATIVE (NEGATIVE); GLUCOSE, URINE (UA) NEGATIVE (NEGATIVE); KETONES,URINE (UA) NEGATIVE (NEGATIVE); LEUKOCYTE ESTERASE, URINE NEGATIVE (NEGATIVE); NITRITE,URINE NEGATIVE (NEGATIVE); OCCULT BLOOD,URINE MODERATE (NEGATIVE); PROTEIN,URINE NEGATIVE (NEGATIVE); UROBILINOGEN,URINE 0.2 (NORMAL) E.U./dL (NORMAL)
[2022-10-31 22:37] LABS: CLARITY,URINE CLEAR (CLEAR)
[2022-10-31 22:44] LABS: SQUAMOUS EPITHELIAL CELL,UR RARE Squamous (<= Few); WBC,URINE 0-3 /HPF (0-3)
[2022-10-31 22:45] LABS: BACTERIA,URINE Rare /HPF (None Seen)
[2022-10-31 22:59] LABS: B. PARAPERTUSSIS- RESP PCR PAN NOT DETECTED; B. PERTUSSIS- RESP PCR PANEL NOT DETECTED; C. PNEUMONIAE- RESP PCR PANEL NOT DETECTED; CORONAVIRUS 229E-RESP PCR NOT DETECTED; CORONAVIRUS HKU1-RESP PCR NOT DETECTED; CORONAVIRUS NL63-RESP PCR NOT DETECTED; CORONAVIRUS OC43-RESP PCR NOT DETECTED; HUMAN METAPNEUMOVIRUS NOT DETECTED; INFLUENZA A- RESP PCR PANEL NOT DETECTED; INFLUENZA B - RESP PCR PANEL NOT DETECTED; M. PNEUMONIAE- RESP PCR PANEL NOT DETECTED; PARAINFLUENZA VIRUS 1 NOT DETECTED; PARAINFLUENZA VIRUS 2 NOT DETECTED; PARAINFLUENZA VIRUS 3 NOT DETECTED; PARAINFLUENZA VIRUS 4 NOT DETECTED; RHINOVIRUS/ENTEROVIRUS NOT DETECTED; RSV- RESP PCR PANEL NOT DETECTED; SARS-CoV-2 -RESP PCR PANEL NOT DETECTED
--- NOTE | 2022-10-31 23:20 | XRAY Report ---
PROCEDURE: Chest 1 View X-Ray INDICATIONS: SOA TECHNIQUE: One view of the chest was acquired. COMPARISON: Chest x-ray 10/20/2022. FINDINGS: Surgical changes and devices: Left chest wall dual-lead pacemaker and postsurgical changes in the me diastinum are redemonstrated. Lungs and pleura: There is a persistent small left pleural effusion with left basilar opacities like ly representing atelectasis. There is persistent mild pulmonary edema. No evidence of pneumothorax. N o right pleural effusion. Mediastinum: Mediastinal contours appear unchanged. Heart size is normal. Bones and chest wall: No suspicious bony lesions. Overlying soft tissues appear unremarkable. IMPRESSION: 1. Small left-sided effusion and left basilar atelectasis redemonstrated. 2. Persistent mild pulmonary edema. Reviewed by: Rey Leyva MD on 10/31/2022 11:19 PM PST Approved by: Rey Leyva MD on 10/31/2022 11:19 PM PST Station ID: [id number]
[2022-10-31] MEDS ORDERED: VANCOMYCIN INJ 1.5 GM in SODIUM CHLORIDE 0.9% 500 ML IV STA (23:49)
[2022-10-31] MEDS ORDERED: VANCOMYCIN 1 GM VIAL ONE (23:56)
[2022-11-01 02:10] VITALS: BP 147/72
== END 2022-11-01 02:09 | disposition home or self-care (01) ==
LOC: ED 20:19
DX: R50.9 Fever, unspecified (principal); Z20.822 Contact with and (suspected) exposure to COVID-19
CPT/HCPCS: 36415; 71045; 80053; 81001; 83605; 83690; 83880; 85025; 87040; 87150; 87181; 87633; 93005; 94640; 96365; 96366; 99284; A9270; J3370; 81003; 87086